=== PATIENT | female | born 1940 | race Caucasian/White ===

== ENCOUNTER 2018-03-16 07:33 | Day surgery (SDC) | payer MEDICARE, OTHER ==
[~2018-03-16 07:33] MED LIST: Buffered Lidocaine 0.9% SYRIN* 5 ML/SYR SYRINGE INTRADERM ONE
[2018-03-16] MEDS ORDERED: Midazolam* 1 MG/ML 2 ML VIAL (2 MG) ONE (09:22)
[2018-03-16] MEDS ORDERED: Propofol* 10 MG/ML 20 ML BTL IV PUSH ONE (09:26)
[2018-03-16] MEDS ORDERED: Lidocaine 2% PF * 5 ML VIAL ONE (09:26)
[2018-03-16] MEDS ORDERED: Labetalol IV* 5 MG/ML 20 ML VIAL ONE (09:54)
[2018-03-16 10:34] VITALS: BP 166/74
[2018-03-16] MEDS ORDERED: Neomycin/Polymy/Dex OPHTH.OIN* 3.5 GM ONE (12:47)
[2018-03-16] MEDS ORDERED: Phenylephrine 2.5% OPTH.SOL* 2 ML BTL ONE (12:47)
[2018-03-16] MEDS ORDERED: Tetracaine 0.5% OPTH.SOL 4 ML* 1 DROP BTL ONE (12:47)
[2018-03-16] MEDS ORDERED: acetaZOLAMIDE TAB* 250 MG ONE (12:47)
[2018-03-16] MEDS ORDERED: Lidocaine 1%* 5 ML VIAL ONE (12:47)
[2018-03-16] MEDS ORDERED: Tropicamide 1% OPTH.SOL* BTL ONE (12:47)
[2018-03-16] MEDS ORDERED: Cyclopentolate 1% OPTH.SOL* 2 ML BTL ONE (12:47)
[2018-03-16] MEDS ORDERED: Ketorolac 0.5% OPHTH (NF) 0.5 % 5 ML BTL ONE (12:47)
[2018-03-16] MEDS ORDERED: Povidone Iodine 5% OPTH* 30 ML BTL ONE (12:47)
--- NOTE | 2018-03-17 00:24 | OP ---
DATE OF OPERATION: 03/16/18 - FORMERLY [facility] DATE OF : 42 SURGEON: Padilla Ulloa MD ANESTHESIA: Monitored anesthesia care. PRE-OP DIAGNOSIS: Cataract, right eye. POST-OP DIAGNOSIS: Cataract, right eye. OPERATIVE PROCEDURE: Extracapsular cataract extraction of the right eye with intraocular lens implant. IMPLANTS: SN60WF 21.5 diopter lens to the right eye. COMPLICATIONS: None. DESCRIPTION OF PROCEDURE: The patient was given phenylephrine 2.5% and cyclopentolate 1% eye drops to the operative eye in the preoperative area. The patient was taken to the operating room where a time-out was taken to identify the correct patient, site, and side of surgery. The patient's right eye was prepped and draped in the usual sterile fashion with 5% Betadine. A second time -out was taken to verify the correct patient, site, and side of surgery, and correct lens implant. A lid speculum was placed to the right eye. A 1 mm paracentesis blade was used to make a clear corneal incision in the superotemporal position. Preservative free 1% lidocaine was injected into the anterior chamber. DisCoVisc was then injected into the anterior chamber. A 2.75 mm keratome blade was used to make a triplanar incision at the inferotemporal position. A cystotome initiated the capsulorrhexis, which was completed with Utrata forceps in a continuous and curvilinear manner. Hydrodissection of the lens was performed with BSS on a cannula. The lens could be spun in a capsular bag. The phacoemulsification handpiece was used with a divide and conquer technique to remove the nucleus with 28.53 CDE. The I /A handpiece was then removed with a residual cortical lens material. DisCoVisc was injected to inflate the capsular bag. The planned SN60WF 21.5 diopter lens was injected into the capsular bag. The residual DisCoVisc was removed from the eye with the I/A handpiece. The corneal incisions were hydrated and no leaks occurred at physiologic pressure around 20 mmHg per palpation. The lid speculum was removed and drapes removed. Maxitrol ointment was placed to the surface of the operative eye. An adhesive patch and shield was then placed on the operative eye. The patient was taken to the postoperative area in stable condition. [id number]/[facility] #: [id number] [facility]ITAL[facility]
== END 2018-03-16 10:27 | disposition home or self-care (01) ==
LOC: OREAST 07:33
PROVIDERS: ATTEND Student in an Organized Health Care Education/Training Program
DX: H25.811 Combined forms of age-related cataract, right eye (principal); H35.3131 Nonexudative age-related macular degeneration, bilateral, early dry stage; H43.813 Vitreous degeneration, bilateral; Z87.891 Personal history of nicotine dependence; E03.9 Hypothyroidism, unspecified; E78.5 Hyperlipidemia, unspecified; I10 Essential (primary) hypertension; M19.90 Unspecified osteoarthritis, unspecified site; G47.00 Insomnia, unspecified
CPT/HCPCS: A9270-GY; J2250; J2704; V2632

== ENCOUNTER 2018-03-23 11:12 | Day surgery (SDC) | payer MEDICARE, OTHER ==
[~2018-03-23 11:12] MED LIST changes: +Acetaminophen TAB* 325 MG PO PRN
[2018-03-23] MEDS ORDERED: fentaNYL* 50 MCG/ML 2 ML VIAL (100 MCG VIAL) ONE (12:06)
[2018-03-23] MEDS ORDERED: Midazolam* 1 MG/ML 2 ML VIAL (2 MG) ONE (12:06)
[2018-03-23 13:50] VITALS: BP 111/61
[2018-03-23] MEDS ORDERED: Neomycin/Polymy/Dex OPHTH.OIN* 3.5 GM ONE (14:13)
[2018-03-23] MEDS ORDERED: Povidone Iodine 5% OPTH* 30 ML BTL ONE (14:13)
[2018-03-23] MEDS ORDERED: Tetracaine 0.5% OPTH.SOL 4 ML* 1 DROP BTL ONE (14:13)
[2018-03-23] MEDS ORDERED: Ketorolac 0.5% OPHTH (NF) 0.5 % 5 ML BTL ONE (14:13)
[2018-03-23] MEDS ORDERED: Lidocaine 1%* 5 ML VIAL ONE (14:13)
[2018-03-23] MEDS ORDERED: Cyclopentolate 1% OPTH.SOL* 2 ML BTL ONE (14:13)
[2018-03-23] MEDS ORDERED: Phenylephrine 2.5% OPTH.SOL* 2 ML BTL ONE (14:13)
[2018-03-23] MEDS ORDERED: acetaZOLAMIDE TAB* 250 MG ONE (14:13)
[2018-03-23] MEDS ORDERED: Tropicamide 1% OPTH.SOL* BTL ONE (14:13)
--- NOTE | 2018-03-24 12:09 | OP ---
DATE OF OPERATION: 03/23/18 - [facility] DATE OF : 42 SURGEON: Padilla Ulloa MD ANESTHESIA: Monitored anesthesia care. PRE-OP DIAGNOSIS: Cataract, left eye. POST-OP DIAGNOSIS: Cataract, left eye. OPERATIVE PROCEDURE: Extracapsular cataract extraction of the left eye with intraocular lens implant. IMPLANTS: SN60WF 22.0 diopter lens to the left eye. COMPLICATIONS: None. DESCRIPTION OF PROCEDURE: The patient was given phenylephrine 2.5% and cyclopentolate 1% eye drops to the operative eye in the preoperative area. The patient was taken to the operating room where a time-out was taken to identify the correct patient, site, and side of surgery. The patient's left eye was prepped and draped in the usual sterile fashion with 5% Betadine. A second time -out was taken to verify the correct patient, site, and side of surgery, and correct lens implant. A lid speculum was placed to the left eye. A 1-mm paracentesis blade was used to make a clear corneal incision in the inferotemporal position. Preservative free 1% lidocaine was injected into the anterior chamber. DisCoVisc was then injected into the anterior chamber. A 2.75 -mm keratome blade was used to make a triplanar incision at the superotemporal position. A cystotome initiated a capsulorrhexis, which was completed with Utrata forceps in a continuous and curvilinear manner. Hydrodissection of the lens was performed with BSS on a cannula. The lens could be spun in the capsular bag. The phacoemulsification handpiece was used with a divide- and- conquer technique to remove the nucleus with 23.3 CDE. The I/A handpiece then removed the residual cortical lens material. DisCoVisc was injected to inflate the capsular bag. The planned SN60WF 22.0 diopter lens was then injected into the capsular bag. The residual DisCoVisc was removed from the eye with I/A handpiece. The corneal incisions were hydrated and no leaks occurred at physiologic pressure around 20 mmHg per palpation. The lid speculum was removed and drapes removed. Maxitrol ointment was placed on the surface of the operative eye. An adhesive patch and shield was then placed on the operative eye. The patient was taken to the postoperative area in stable condition. [id number]/[facility] #: [id number] [facility]ITALAl[facility]
== END 2018-03-23 13:51 | disposition home or self-care (01) ==
LOC: OREAST 11:12
PROVIDERS: ATTEND Student in an Organized Health Care Education/Training Program
DX: H25.812 Combined forms of age-related cataract, left eye (principal); H35.3131 Nonexudative age-related macular degeneration, bilateral, early dry stage; H43.813 Vitreous degeneration, bilateral; Z87.891 Personal history of nicotine dependence; E78.2 Mixed hyperlipidemia; E03.8 Other specified hypothyroidism; G47.00 Insomnia, unspecified
CPT/HCPCS: A9270-GY; J2250; J3010; V2632